=== PATIENT | male | born 1975 | race Two or more races ===

== ENCOUNTER 2018-09-15 22:59 | Emergency (ER) | payer MEDICAID ==
[~2018-09-15] VITALS: Ht 172.7 cm; Wt 88.5 kg
[~2018-09-15 22:59] MED LIST: CEPH250C PO; CLIN150C PO; HYDR-4683 PO; TRAM50TA2 PO
[2018-09-15 23:20] VITALS: BP 111/76
== END 2018-09-16 02:37 | disposition left against medical advice (07) ==
LOC: ER 22:59
DX: M79.631 Pain in right forearm (principal); Z48.00 Encounter for change or removal of nonsurgical wound dressing; Z53.21 Procedure and treatment not carried out due to patient leaving prior to being seen by health care provider

== ENCOUNTER 2021-10-12 15:19 | Emergency (ER) | payer MEDICAID ==
[~2021-10-12] VITALS: Ht 172.7 cm; Wt 90.7 kg
[~2021-10-12 15:19] MED LIST changes: +CEPH-322 PO; -CEPH250C PO; -HYDR-4683 PO; +HYDR-4833 PO
[2021-10-12 15:29] VITALS: BP 104/74
== END 2021-10-13 02:47 | disposition left against medical advice (07) ==
LOC: ER 15:19
DX: T25.011A Burn of unspecified degree of right ankle, initial encounter (principal); Z53.21 Procedure and treatment not carried out due to patient leaving prior to being seen by health care provider; X08.8XXA Exposure to other specified smoke, fire and flames, initial encounter; Y93.89 Activity, other specified; Y92.89 Other specified places as the place of occurrence of the external cause; Y99.8 Other external cause status

== ENCOUNTER 2022-01-20 01:10 | Inpatient (IN) | payer MEDICAID ==
[~2022-01-20] VITALS: Ht 172.7 cm; Wt 97.0 kg
[2022-01-20 01:53] LABS: Basophils # (auto) 0.1 10 ^3/uL (0-0.2); Basophils % (auto) 0.6 % (0.0-2.0); Eosinophils # (auto) 0.2 10 ^3/uL (0-0.8); Eosinophils % (auto) 1.5 % (0.0-7.0); Hematocrit 41.3 % (41.0-53.0); Hemoglobin 14.3 g/dL (13.5-17.5); Lymphocytes # (auto) 1.5 10 ^3/uL (0.4-5.4); Lymphocytes % (auto) 14.5 % (10.0-50.0); Mean Corpuscular Hemoglobin 29.6 pg (28.0-32.0); Mean Corpuscular Hgb Conc. 34.6 g/dL (32.0-36.0); Mean Corpuscular Volume 85.4 fL (80.0-100.0); Monocytes # (auto) 1.1 10 ^3/uL (0-1.3); Monocytes % (auto) 10.7 % (0.0-12.0); Neutrophils # (auto) 7.6 10 ^3/uL (1.6-8.6); Neutrophils % (auto) 72.7 % (37.0-80.0); Nucleated Red Blood Cells % 0.1 %; Red Blood Cells 4.83 10^6/uL (4.5-5.90); Red Cell Distribution Width 12.8 % (11.8-14.3); White Blood Cell 10.5 10^3/uL (4.4-10.8)
[2022-01-20 02:14] LABS: Albumin 3.4 g/dL (3.4-5.0); Calcium 8.6 mg/dL (8.5-10.1)
[2022-01-20 02:16] LABS: BUN/Creatinine Ratio 10.9
[2022-01-20 02:18] LABS: Bilirubin, Total 0.6 mg/dL (0.2-1.0); Total Protein 7.6 g/dL (6.4-8.2)
[2022-01-20] MEDS ORDERED: VANCOMYCIN 1GM/250ML 250 ML IV ONE ×2 (04:00)
[2022-01-20] MEDS ORDERED: MEROPENEM 1GM IVPB 100 ML IV ONE (04:00)
[2022-01-20] MEDS ORDERED: MORPHINE SULFATE 4 MG/ML SYR/VIAL IV ONE (06:15)
[2022-01-20] MEDS ORDERED: ACETAMINOPHEN 325 MG TAB PO PRN (07:15)
[2022-01-20] MEDS ORDERED: MORPHINE SULFATE INJECTION 2 MG/ML SYRG IV PRN (07:15)
[2022-01-20] MEDS ORDERED: NITROGLYCERIN 0.4 MG SL TAB SL PRN (07:15)
[2022-01-20] MEDS: SODIUM CHLORIDE 0.9% 1,000 ML IV SCH ×2 (07:30→23:55)
[2022-01-20] MEDS ORDERED: VANCOMYCIN PER PHARMACY 0 MG IV SCH (07:30)
[2022-01-20] MEDS: ENOXAPARIN SOD 40 MG/0.4 ML SYRINGE SC SCH (09:33)
[2022-01-20 11:43] VITALS: BP 133/68
[2022-01-20] MEDS ORDERED: cefTRIAXone 1GM/50ML D5W 50 ML IV ONE (12:00)
[2022-01-20] MEDS: MORPHINE SULFATE 4 MG/ML SYR/VIAL IV PRN (12:00)
[2022-01-20 13:00] VITALS: BP 133/68
[2022-01-20] MEDS: CLINDAMYCIN 600MG IV 50 ML IV SCH ×2 (14:47→22:19)
[2022-01-20] MEDS: HYDROcodone-ACET 5/325MG TAB PO PRN ×2 (14:57→20:39)
[2022-01-20 17:00] VITALS: BP_SYST 119; BP_SYST 146; BP_DIAS 58; BP_DIAS 74
[2022-01-20 22:00] VITALS: BP 109/58
[2022-01-21] MEDS: HYDROcodone-ACET 5/325MG TAB PO PRN ×2 (00:36→13:53)
[2022-01-21 05:00] VITALS: BP 112/63
[2022-01-21] MEDS: CLINDAMYCIN 600MG IV 50 ML IV SCH ×3 (06:14→22:02)
[2022-01-21 07:05] LABS: Hematocrit 38.2 % (41.0-53.0); Hemoglobin 13.3 g/dL (13.5-17.5); Mean Corpuscular Hemoglobin 29.5 pg (28.0-32.0); Mean Corpuscular Hgb Conc. 34.8 g/dL (32.0-36.0); Mean Corpuscular Volume 84.8 fL (80.0-100.0); Red Cell Distribution Width 12.6 % (11.8-14.3); White Blood Cell 10.3 10^3/uL (4.4-10.8)
[2022-01-21 07:19] LABS: Basophils # (auto) 0.1 10 ^3/uL (0-0.2); Basophils % (auto) 0.5 % (0.0-2.0); Eosinophils # (auto) 0.2 10 ^3/uL (0-0.8); Eosinophils % (auto) 1.6 % (0.0-7.0); Lymphocytes # (auto) 1.4 10 ^3/uL (0.4-5.4); Lymphocytes % (auto) 13.4 % (10.0-50.0); Monocytes # (auto) 1.3 10 ^3/uL (0-1.3); Monocytes % (auto) 12.9 % (0.0-12.0); Neutrophils # (auto) 7.4 10 ^3/uL (1.6-8.6); Neutrophils % (auto) 71.6 % (37.0-80.0); Nucleated Red Blood Cells % 0.1 %
[2022-01-21 07:31] LABS: Albumin 2.8 g/dL (3.4-5.0); Calcium 8.1 mg/dL (8.5-10.1)
[2022-01-21 07:35] LABS: BUN/Creatinine Ratio 12.3; Bilirubin, Total 0.7 mg/dL (0.2-1.0); Total Protein 6.9 g/dL (6.4-8.2)
[2022-01-21 08:00] VITALS: BP 115/62
[2022-01-21 09:00] VITALS: BP 115/62
[2022-01-21] MEDS: ENOXAPARIN SOD 40 MG/0.4 ML SYRINGE SC SCH (09:28)
[2022-01-21] MEDS: cefTRIAXone 1GM/50ML D5W 50 ML IV SCH (09:28)
[2022-01-21] MEDS: MORPHINE SULFATE 4 MG/ML SYR/VIAL IV PRN ×2 (09:29→22:17)
[2022-01-21 12:32] VITALS: BP 108/75
[2022-01-21 16:43] VITALS: BP 126/71
[2022-01-21 22:00] VITALS: BP 127/71
[2022-01-22] MEDS: MORPHINE SULFATE 4 MG/ML SYR/VIAL IV PRN ×4 (03:15→21:39)
[2022-01-22 05:00] VITALS: BP 111/65
[2022-01-22] MEDS: CLINDAMYCIN 600MG IV 50 ML IV SCH ×3 (06:34→21:37)
[2022-01-22] MEDS: cefTRIAXone 1GM/50ML D5W 50 ML IV SCH (09:00)
[2022-01-22 09:02] VITALS: BP 133/73
[2022-01-22] MEDS: ENOXAPARIN SOD 40 MG/0.4 ML SYRINGE SC SCH (10:00)
[2022-01-22 13:00] VITALS: BP 134/71
[2022-01-22 17:00] VITALS: BP 126/68
[2022-01-22] MEDS: HYDROcodone-ACET 5/325MG TAB PO PRN (20:44)
[2022-01-22 22:35] VITALS: BP 106/63
[2022-01-23 05:00] VITALS: BP 103/63
[2022-01-23] MEDS: CLINDAMYCIN 600MG IV 50 ML IV SCH (06:07)
[2022-01-23] MEDS: MORPHINE SULFATE 4 MG/ML SYR/VIAL IV PRN (06:09)
[2022-01-23 08:00] VITALS: BP 136/83
[2022-01-23 10:52] VITALS: BP 128/72
== END 2022-01-23 10:00 | disposition left against medical advice (07) | DRG 720 ==
LOC: ER 01:12 → OVERFLOW 07:03 → WEST WING 11:15
PROVIDERS: ADMIT Internal Medicine; ATTEND Internal Medicine Nephrology
DX: A41.01 Sepsis due to Methicillin susceptible Staphylococcus aureus (principal); L97.929 Non-pressure chronic ulcer of unspecified part of left lower leg with unspecified severity; L02.416 Cutaneous abscess of left lower limb; L03.116 Cellulitis of left lower limb; E66.9 Obesity, unspecified; F15.10 Other stimulant abuse, uncomplicated; Z20.822 Contact with and (suspected) exposure to COVID-19; F17.210 Nicotine dependence, cigarettes, uncomplicated; Z53.21 Procedure and treatment not carried out due to patient leaving prior to being seen by health care provider; S81.802A Unspecified open wound, left lower leg, initial encounter; X58.XXXA Exposure to other specified factors, initial encounter; Y93.89 Activity, other specified; Z68.32 Body mass index [BMI] 32.0-32.9, adult; Z80.42 Family history of malignant neoplasm of prostate; Y92.89 Other specified places as the place of occurrence of the external cause; Y99.8 Other external cause status
CPT/HCPCS: 36415; 73590; 73700; 73718; 80053; 83605; 85025; 85027; 85652; 87040; 87077; 87186; 87205; 87426; 96365; 96368; 96375; G0378; J0696; J2185; J3490

== ENCOUNTER 2022-02-01 23:42 | Emergency (ER) | payer MEDICAID ==
[~2022-02-01] VITALS: Ht 172.7 cm; Wt 94.3 kg
[2022-02-02 02:12] LABS: Basophils # (auto) 0.1 10 ^3/uL (0-0.2); Eosinophils # (auto) 0.2 10 ^3/uL (0-0.8); Eosinophils % (auto) 2.9 % (0.0-7.0); Hematocrit 37.9 % (41.0-53.0); Hemoglobin 13.2 g/dL (13.5-17.5); Lymphocytes # (auto) 1.8 10 ^3/uL (0.4-5.4); Lymphocytes % (auto) 31.6 % (10.0-50.0); Mean Corpuscular Hemoglobin 29.6 pg (28.0-32.0); Mean Corpuscular Volume 84.6 fL (80.0-100.0); Monocytes # (auto) 0.3 10 ^3/uL (0-1.3); Monocytes % (auto) 5.9 % (0.0-12.0); Neutrophils # (auto) 3.3 10 ^3/uL (1.6-8.6); Neutrophils % (auto) 57.6 % (37.0-80.0); Nucleated Red Blood Cells % 0.1 %; Red Blood Cells 4.48 10^6/uL (4.5-5.90); Red Cell Distribution Width 12.8 % (11.8-14.3); White Blood Cell 5.8 10^3/uL (4.4-10.8)
[2022-02-02 02:26] LABS: INR 0.99 (0.9-1.15); Partial Thromboplastin Time 21.9 sec (23.6-33.0)
[2022-02-02 02:28] LABS: Albumin 3.1 g/dL (3.4-5.0); BUN/Creatinine Ratio 18.1; Calcium 8.5 mg/dL (8.5-10.1); Potassium 3.7 mmol/L (3.5-5.1)
[2022-02-02 02:31] LABS: Bilirubin, Total 0.5 mg/dL (0.2-1.0); Total Protein 7.7 g/dL (6.4-8.2)
[2022-02-02 03:50] LABS: CRP High Sensitivity 1.4 mg/dL (< 0.3)
[2022-02-02 03:58] VITALS: BP 134/87
[2022-02-02] MEDS ORDERED: DOXY100C2 PO (04:00)
== END 2022-02-02 04:10 | disposition home or self-care (01) ==
LOC: ER 23:42
DX: R21 Rash and other nonspecific skin eruption (principal); T50.905A Adverse effect of unspecified drugs, medicaments and biological substances, initial encounter; F17.210 Nicotine dependence, cigarettes, uncomplicated; Z79.899 Other long term (current) drug therapy; Z79.2 Long term (current) use of antibiotics; Y92.89 Other specified places as the place of occurrence of the external cause
CPT/HCPCS: 36415; 80053; 85025; 85610; 85652; 85730; 86141

== ENCOUNTER 2022-11-14 14:27 | Emergency (ER) | payer MEDICAID ==
[~2022-11-14] VITALS: Ht 172.7 cm; Wt 95.0 kg
[~2022-11-14 14:27] MED LIST changes: +DOXY100C2 PO
[2022-11-14 18:43] VITALS: BP 119/77
[2022-11-14] MEDS ORDERED: BACDST PO (19:48)
== END 2022-11-14 19:56 | disposition home or self-care (01) ==
LOC: ER 14:29
DX: L03.114 Cellulitis of left upper limb (principal); F17.210 Nicotine dependence, cigarettes, uncomplicated; F15.90 Other stimulant use, unspecified, uncomplicated; Z79.899 Other long term (current) drug therapy

== ENCOUNTER 2024-11-27 13:52 | Emergency (ER) | payer MEDICAID ==
[~2024-11-27] VITALS: Ht 172.7 cm; Wt 68.0 kg
[~2024-11-27 13:52] MED LIST changes: +BACDST PO; -CEPH-322 PO; +CEPH250C PO; -DOXY100C2 PO; +DOXY100C4 PO
--- NOTE | 2024-11-27 14:07 | ED.PDOC ---
History of Present Illness HPI Comments 49-year-old male came to the ER stating that he is feeling weak feeling of faint after having methamphetamine followed by cleaning the floor with family bullosa. He feels the smell of fat bullosa had caused him to be be feeling the way he is feeling. Feeling of faint. Denies any history of hypertension diabetes coronary artery disease. He does use methamphetamine every day. Denies any other symptoms. Chief Complaint: Shortness of Breath Time Seen by MD: 13:58 Primary Care Provider: NONE Reviewed Notes: Nurses Notes, Medications, Allergies Allergies: Coded Allergies: NO KNOWN ALLERGIES (Unverified , 09/13/14) Home Meds Active Scripts Sulfamethoxazole W/Trimethopri (Bactrim Ds Tablet) 1 Tab Tb, 1 TAB PO BID for 10 Days, #20 TAB Prov:RED HODGES TELEGRAPH INSPECTOR 11/14/22 Doxycycline Hyclate (Doxycycline Hyclate) 100 Mg Cap, 100 MG PO BID for 10 Days, #20 CAP Prov:NEAL EVANS MD 02/02/22 Clindamycin Hcl (CLEOCIN) 150 Mg Cap, 3 CAP PO Q8HR, #63 CAP Prov:SHELLI LEON MD 07/21/15 Reported Medications Hydrocodone-Acetaminophen ([place] 5/325MG) 1 Tab Tb, 1 TAB PO Q6HP PRN, #20 TAB 07/21/15 Tramadol Hcl (Tramadol Hcl) 50 Mg Tab, 50 MG PO Q6HP PRN for MODERATE PAIN, TAB 07/18/15 Cephalexin (KEFLEX CAPSULE) 250 Mg Cp, 500 MG PO QID for 10 Days 07/18/15 Information Source: Patient Mode of Arrival: Ambulatory Severity: Moderate Timing: Hours Duration: Since onset Past Medical History PAST MEDICAL HISTORY: Denies Surgical History: Denies all surgeries Family History Family History: Reviewed,noncontributory to illness Social History Smoker: Cigarettes, Less Than 1 Pack/Day Alcohol: Occasionally Drugs: Methamphetamine Lives In: Home Physical Exam General Appearance: Moderate Distress HEENT: Normal ENT Inspection, Pharynx Normal, TMs Normal Neck: Full Range of Motion, Non-Tender, Normal, Normal Inspection Respiratory: Chest Non-Tender, Lungs Clear, No Accessory Muscle Use, No Respiratory Distress, Normal Breath Sounds Cardiovascular: No Edema, No JVD, No Murmur, No Gallop, Normal Peripheral Pulses, Regular Rate/Rhythm Breast Exam: Deferred Gastrointestinal: No Organomegaly, Non Tender, No Pulsatile Mass, Normal Bowel Sounds, Soft Genitalia: Deferred Pelvic: Deferred Rectal: Deferred Extremities: No calf tenderness, Normal capillary refill, Normal inspection, Normal range of motion, Non-tender, No pedal edema Musculoskeletal : Apperance: Normal Neurologic: Alert, afterschool babysitter II-XII nml as Tested, No Motor Deficits, Normal Affect, Normal Mood, No Sensory Deficits Cerebellar Function: Normal Reflexes: Normal Skin: Dry, Normal Color, Warm Peripheral Pulses: 3+ Radial (R), 3+ Radial (L) Lymphatic: No Adenopathy Was a procedure done? Was a procedure done?: No Differential Dx Considerations may include: Drug use Anxiety X-Ray, Labs, Meds, VS Vital Signs Date Time Temp Pulse Resp B/P (MAP) Pulse Ox O2 Delivery O2 Flow Rate FiO2 11/27/24 15:01 84 20 92/72 (79) 99 11/27/24 15:01 17 Room Air* 0 21 11/27/24 14:00 98.4 87 18 148/94 (112) 97 Current Medications Medications (Trade) Dose Ordered Sig/Yasir Route Start Time Stop Time Status Last Admin Sodium Chloride 1,000 ml @ 1,000 mls/hr Q1H ONCE IV 11/27/24 14:15 11/27/24 15:14 DC 11/27/24 14:15 Lorazepam (Ativan Inj) 1 mg ONCE ONCE IV 11/27/24 14:15 11/27/24 14:16 DC 11/27/24 15:07 Ondansetron HCl (Zofran) 4 mg ONCE ONCE IV 11/27/24 14:15 11/27/24 14:16 DC 11/27/24 15:06 Patient alert. Had methamphetamine in the morning. Vitals stable. Answering all questions. Saturation pristine on room air. Heart rate within normal limits. Denies chest pain. Establish intravenous access. Was given fluids. Counseled patient on effects of using drugs for 15 minutes. Denies suicidal or homicidal ideation. Explained to the patient. Was told to follow up with his primary care physician. Was told to come back if there is any problem. Time of 1ST Reevaluation: 17:28 Reevaluation 1ST: Improved Patient Education/Counseling: Diagnosis, Treatment, Prognosis Family Education/Counseling: No Family Present Departure 1 Departure Time of Disposition: 14:41 Impression: Primary Impression: Methamphetamine use Additional Impression: Anxiety Disposition: 01 HOME / SELF CARE / HOMELESS Condition: Good Discharged With: Self Critical Care Note Critical Care Time?: No Stability Stability form required: No Heart Score Heart Score: Heart Score Response (Comments) Value History N/A 0 EKG N/A 0 Age N/A 0 Risk Factors N/A 0 Troponin N/A 0 Total 0 SOPHIA TYSON MD Nov 27, 2024 14:07
[2024-11-27] MEDS: SODIUM CHLORIDE 0.9% 1,000 ML IV ONE (14:15)
--- NOTE | 2024-11-27 14:43 | DVH ---
XY CHEST PORTABLE, HISTORY: sob COMPARISON: None None TECHNICAL DATA: 1 view of the chest was obtained. FINDINGS: Lines and tubes: None Cardiomediastinal silhouette: normal Pulmonary vasculature: normal Lung expansion: low Lung airspace: normal Lung interstitium: normal Pleura: normal Pneumothorax: no Bones: Unremarkable Other: no IMPRESSION: No acute intrathoracic abnormality.
[2024-11-27 15:01] VITALS: RESP 17
[2024-11-27] MEDS: ONDANSETRON HCL 4 MG/2 ML VIAL IV ONE (15:06)
[2024-11-27] MEDS: LORazepam 2MG/ML-1ML VIAL IV ONE (15:07)
[2024-11-27 18:08] VITALS: BP 136/82; PULSE 101; RESP 22; TEMP 98.4; O2SAT 100
== END 2024-11-28 05:47 | disposition home or self-care (01) ==
LOC: ER 13:52
DX: F41.9 Anxiety disorder, unspecified (principal); F15.10 Other stimulant abuse, uncomplicated; F17.210 Nicotine dependence, cigarettes, uncomplicated
CPT/HCPCS: 71045; 96361; 96374; 96375; 99284; J2060; J2405; J7030